=== PATIENT | male | born 1980 | race African-American/Black ===

== ENCOUNTER → 2017-04-14 | Emergency (ER) | payer OTHER, SELFPAY ==
[~2017-04-14] MED LIST: Ketorolac Tromethamine 30 MG/ML VIAL ONE; Lorazepam 2 MG/ML VIAL ONE; Sodium Chloride 0.9% 1,000 ML ONE; methylPREDNISolone Sod Succ/PF 125 MG/2 ML VIAL ONE
[2017-04-14 15:51] LABS: Hemoglobin 13.4 g/dL (14.0-18.0); Mean Corpuscular HGB CONC 32.4 g/dL (32.0-36.0); Mean Corpuscular Hemoglobin 32.4 pg (27.0-31.0); Mean Platelet Volume 6.7 fL (7.4-10.4); Platelet Count 508 thou/uL (130-400); RBC Distribution Width 11.9 % (11.5-14.5); Red Blood Cell (RBC) Count 4.12 mill/uL (4.70-6.10); White Blood Cell (WBC) Count 16.5 thou/uL (4.8-10.8)
[2017-04-14 15:59] LABS: CKMB 0.3 ng/mL (0-6.6); Troponin I Less than 0.010 ng/mL (< 0.028)
[2017-04-14 16:14] LABS: ALT (SGPT) 43 U/L (8-55); AST (SGOT) 31 U/L (5-34); Albumin 3.8 g/dL (3.5-5.0); Alkaline Phosphatase 150 U/L (40-150); Anion Gap 17 mmol/L (10-20); BUN (Urea Nitrogen) Less than 4 mg/dL (8.9-20.6); Bilirubin, Total 1.1 mg/dL (0.2-1.2); CK (CPK) 55 U/L (30-200); Calc. Creatinine Clearance 0 mL/min (70-130); Calcium 10.2 mg/dL (7.8-10.44); Carbon Dioxide 23 mmol/L (22-29); Chloride 99 mmol/L (98-107); Estimated GFR-MDRD Greater than 90; Globulin 4.8 g/dL (2.4-3.5); Glucose 106 mg/dL (70-105); Lipase 11 U/L (8-78); Potassium 4.4 mmol/L (3.5-5.1); Protein, Total 8.6 g/dL (6.0-8.3); Sodium 135 mmol/L (136-145)
[2017-04-14 16:17] LABS: Lymphocytes 28 % (21-51); MDiff Complete? YES; Monocytes 5 % (0-10); Neutrophil 67 % (42-75); PLT Morphology Comment Appears Adequate; RBC Morphology Normal
[2017-04-14 16:29] LABS: Bilirubin Small (Negative); Blood, Urine Trace (Negative); Clarity Clear (Clear); Glucose, Urine (Dipstick) Negative (Negative); Leukocyte Negative (Negative); Nitrite Negative (Negative); Protein, Urine (Dipstick) 30 mg/dL (Neg-Trace); Specific Gravity, Urine 1.015 (1.005-1.030); pH, Urine 7.5 (5.0-9.0)
[2017-04-14 16:43] LABS: Amphetamine Detected (NotDetected); Barbiturates Screen Not Detected (NotDetected); Benzodiazepine Screen Not Detected (NotDetected); Cocaine Metabolite Screen Not Detected (NotDetected); Medtox Control Line Valid? VALID (VALID); Methadone Not Detected (NotDetected); Methamphetamine Detected (NotDetected); Opiate Screen Not Detected (NotDetected); Oxycodone Screen Not Detected (NotDetected); Phencyclidine (PCP) Not Detected (NotDetected); THC/Cannabinoid Screen Detected (NotDetected); Tricyclic Screen Not Detected (NotDetected)
[2017-04-14 16:45] LABS: Bacteria/HPF Rare-Few HPF (None Seen); Squamous Epithelial 0-3 HPF (0-3); WBC/HPF 0-3 HPF (0-3)
[2017-04-14 16:50] LABS: CRP (Inflammatory) 29.31 mg/dL (= or < 0.5)
--- NOTE | 2017-04-14 17:09 | RAD ---
THREE VIEWS OF THE RIGHT HAND 04/14/17 HISTORY: Right hand pain, swelling, no history of injury. FINDINGS: There is degenerative change centered at the second metacarpophalangeal joint, the second proximal in terphalangeal joint and the fifth proximal interphalangeal joint with joint space narrowing and subch ondral sclerosis as well as osteophyte formation. There is questionable erosive change involving the second and fifth proximal interphalangeal joints with overhanging edges and sclerotic margins. There is no acute fracture or evidence of dislocation. There is prominent soft tissue swelling involving the hand, including the palmar and dorsal aspect o f the hand in the region of the metacarpals. There also is soft tissue swelling involving the fingers , especially the second interphalangeal joint proximally. IMPRESSION: Diffuse nonspecific soft tissue swelling. Degenerative changes as detailed above. Possible erosive ch thalia raises the question of associated gouty arthritis. Diffuse soft tissue swelling may be related t o an inflammatory/infectious process, including extensive cellulitis. POS: [facility]
== END ==
LOC: NAV ERS 14:48
DX: M13.0 Polyarthritis, unspecified (principal); M62.838 Other muscle spasm; F17.210 Nicotine dependence, cigarettes, uncomplicated
CPT/HCPCS: 80053; 80306; 81003; 81015; 82553; 83605; 83690; 84484; 85025; 85379; 86140; 93005; 96361; 96374; 96375; J1885; J2060; J2930; J7050

== ENCOUNTER 2019-01-11 08:01 | Emergency (ER) | payer SELFPAY ==
[2019-01-11] MEDS ORDERED: Dexamethasone 20 MG/5 ML VIAL ONE (08:24)
[2019-01-11] MEDS ORDERED: Acetaminophen 500 MG TAB ONE (08:24)
[2019-01-11] MEDS ORDERED: Morphine 4 MG/ML VIAL ONE (08:24)
--- NOTE | 2019-01-11 08:53 | RAD ---
Exam:Right wrist 3 views HISTORY: Pain. COMPARISON: None FINDINGS: Intercarpal and radiocarpal joint spaces are preserved. No fracture. No cortical irregulari ty or periosteal reaction. Chronic deformity of the distal ulna. Nonspecific soft tissue swelling. Arthritic changes involving multiple metacarpal phalangeal joint spaces as well as interphalangeal anh int spaces of the right hand, incompletely evaluated. IMPRESSION: 1. Soft tissue swelling at the level of the wrist. No significant degenerative change. 2. 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 Dedicated right hand rad iograph series is recommended.
[2019-01-11] MEDS ORDERED: Ketorolac Tromethamine 30 MG/ML VIAL ONE (09:09)
--- NOTE | 2019-01-11 09:16 | RAD ---
RIGHT SHOULDER 3 VIEWS: HISTORY: Right shoulder pain. FINDINGS/IMPRESSION: There are degenerative changes in the acromioclavicular joint. No fracture, dislocation, or bony ramila truction is identified. POS: [facility]
== END 2019-01-11 09:50 | disposition home or self-care (01) ==
LOC: NAV ERS 08:01
DX: M06.9 Rheumatoid arthritis, unspecified (principal); M10.9 Gout, unspecified; F17.210 Nicotine dependence, cigarettes, uncomplicated; Z79.899 Other long term (current) drug therapy
CPT/HCPCS: 96372; J1100; J1885; J2270

== ENCOUNTER 2020-12-18 13:51 | Emergency (ER) | payer OTHER, SELFPAY ==
[2020-12-18] MEDS ORDERED: Ketorolac Tromethamine 30 MG/ML VIAL ONE (14:48)
[2020-12-18] MEDS ORDERED: Acetaminophen 500 MG TAB ONE (14:48)
[2020-12-18] MEDS ORDERED: Dexamethasone 4 mg/ml Vial ONE (14:48)
== END 2020-12-18 15:13 | disposition home or self-care (01) ==
LOC: NAV ERS 13:51
DX: M17.11 Unilateral primary osteoarthritis, right knee (principal); M10.9 Gout, unspecified; M06.9 Rheumatoid arthritis, unspecified; F17.290 Nicotine dependence, other tobacco product, uncomplicated; Z79.899 Other long term (current) drug therapy
CPT/HCPCS: 96372; J1100; J1885

== ENCOUNTER 2022-01-20 12:25 | Emergency (ER) | payer MEDICAID, OTHER, SELFPAY ==
[2022-01-20] MEDS ORDERED: Acetaminophen 500 MG TAB ONE (13:34)
== END 2022-01-20 13:44 | disposition home or self-care (01) ==
LOC: NAV ERS 12:25
DX: M06.9 Rheumatoid arthritis, unspecified (principal); Z79.899 Other long term (current) drug therapy
CPT/HCPCS: 99283

== ENCOUNTER 2022-01-22 17:05 | Emergency (ER) | payer MEDICAID ==
[2022-01-22] MEDS ORDERED: Acetaminophen/Codeine 30-300mg Tablet ONE (17:44)
[2022-01-22] MEDS ORDERED: Ketorolac Tromethamine 60 MG/2 ML VIAL ONE (17:45)
[2022-01-22] MEDS ORDERED: Cyclobenzaprine 10 MG TAB ONE (17:45)
[2022-01-22] MEDS ORDERED: Ondansetron ODT 4 MG TAB ONE (17:45)
== END 2022-01-22 19:13 | disposition home or self-care (01) ==
LOC: NAV ERS 17:05
DX: G89.4 Chronic pain syndrome (principal); M54.2 Cervicalgia; M06.9 Rheumatoid arthritis, unspecified; F17.210 Nicotine dependence, cigarettes, uncomplicated; Z79.899 Other long term (current) drug therapy
CPT/HCPCS: 96372; 99283; J1885; Q0162